=== PATIENT | female | born 1970 | race Caucasian/White ===

== ENCOUNTER 2018-08-12 06:07 | Inpatient (IN) ==
[2018-08-12] MEDS ORDERED: Chlorhexidine Gluconate 2% 1 Pack (2 Cloths) TOPICAL ONE (06:53)
[2018-08-12] MEDS ORDERED: Sodium Chlor 0.9% Inj 500 ML IV.SIG SCH (07:00)
[2018-08-12] MEDS ORDERED: ceFAZolin 2 GM Premix Inj 2 GM/50 ML PIGGYBACK IV.SIG SCH (07:00)
[2018-08-12] MEDS ORDERED: Microfibrillar Collagen Hemostat 1 GM Packet TOPICAL ONE (07:14)
[2018-08-12] MEDS ORDERED: oxyCODONE/Acetaminophen 10/325 Tablet PO PRN (09:47)
[2018-08-12] MEDS ORDERED: LORazepam 0.5 MG Tablet PO PRN (09:47)
[2018-08-12] MEDS ORDERED: Zolpidem Tartrate 5 MG Tablet PO PRN (09:47)
[2018-08-12] MEDS ORDERED: Naloxone Inj 0.4 MG/ML Vial IV.PUSH PRN ×2 (09:47→09:53)
[2018-08-12] MEDS ORDERED: Ketorolac Inj 30 MG/ML (IVP) Vial IV.PUSH PRN (09:47)
[2018-08-12] MEDS ORDERED: Promethazine 25 MG Supp RECTAL PRN (09:47)
[2018-08-12] MEDS ORDERED: Morphine Inj 30 MG/30 ML PCA.VIAL PCA PRN (09:53)
--- NOTE | 2018-08-12 09:56 | P.BOP ---
- Preoperative Diagnosis (1) Menorrhagia with irregular cycle (2) Enlarged uterus (3) Uterine fibroid - Postoperative Diagnosis (1) S/P total abdominal hysterectomy (2) Status post bilateral salpingectomy Date of procedure: 08/12/18 (see dictated op note for full details) Procedure: exam under anesthesia, total abdominal hysterectomy, bilateral salpingectomy Anesthesia: GETA Surgeon: Eufemia Waller MD Maintenance Truck Driver: Hannah George Estimated blood loss (mL): 250 IV fluids (mL): 1,400 Urine output (mL): 100 Pathology: other (uterus, cervix, left fallopian tube, right fallopian tube) Condition: stable Disposition: PACU
[2018-08-12] MEDS ORDERED: fentaNYL Citrate Inj 100 MCG/2 ML Ampul ONE (10:02)
[2018-08-12] MEDS ORDERED: *Meperidine Inj 25 MG/ML Vial PERIprocedural Use ONLY ONE (10:05)
[2018-08-12] MEDS ORDERED: Morphine Inj 30 MG/30 ML PCA.VIAL PCA ONE (10:13)
[2018-08-12] MEDS ORDERED: Ketorolac Inj 30 MG/ML (IVP) Vial ONE (10:13)
[2018-08-12] MEDS ORDERED: *Ondansetron Inj 4 MG/2 ML Vial PERIprocedural Use ONLY ONE (10:17)
--- NOTE | 2018-08-12 10:30 | MP ---
cc: Eufemia Waller MD DATE OF OPERATION: PREOPERATIVE DIAGNOSES: 1. Premenopausal menorrhagia with irregular cycle. 2. Enlarged uterus. 3. Multiple uterine fibroids. 4. Failed medical management. POSTOPERATIVE DIAGNOSES: 1. Premenopausal menorrhagia with irregular cycle. 2. Enlarged uterus. 3. Multiple uterine fibroids. 4. Failed medical management. 5. Postoperative day number zero. INDICATIONS: Liv Kevin is a 48-year-old 3, para 2-0-1-2, who has a long history of progressively longer heavier more painful menstrual cycles, as well as chronic right lower quadrant pain. On office examination, she was found to have a markedly enlarged uterus palpating approximately at the level of the umbilicus, very broad in nature; and on ultrasound imaging, multiple fibroids were found, the largest fibroid was found to be over 8 cm. She was counseled on management options. Initially, she desired expectant management. Later, she desired medical management with Depo-Provera; and due to failure of these methods, the patient eventually desired definitive management with surgery. So, she was counseled and scheduled. PROCEDURE PERFORMED: 1. Exam under anesthesia. 2. Exploratory laparotomy. 3. Total abdominal hysterectomy. 4. Bilateral salpingectomy. SURGEON: Eufemia Waller MD. PUBLICATIONS INSPECTOR: Hannah George MD. TYPE OF ANESTHESIA: General. ESTIMATED BLOOD LOSS: 250 mL. IV FLUID REPLACEMENT: 1400 mL. URINE OUTPUT: 100 mL clear urine drained in the Villarreal bag at the end of the procedure. PROPHYLAXIS: Ancef 2 grams IV was given preoperatively. SCDs were on and functioning throughout the entire case. COMPLICATIONS: None. COUNTS: Sponge, lap, instrument, and needle counts were correct x 2 at the end of the procedure. SPECIMEN: Uterus, cervix, left fallopian tube, right fallopian tube INTRAOPERATIVE FINDINGS: A markedly enlarged multi-fibroid uterus, approximately 18-week size with at least 7 visualized and palpated fibroids, the largest of which a pedunculated anterior leaning to the patient's right side, approximately 8-10 cm. Normal appearing bilateral adnexa. There was a paratubal cyst on the right fallopian tube that was removed with the specimen. PROCEDURE IN DETAIL: After reviewing the informed consent, the patient was taken to the operating suite, where a timeout was performed to identify the patient, planned procedure, and any known allergies to drugs or drug products. The patient was placed in dorsal supine position and general anesthesia was administered without difficulty and found to be adequate. Exam under anesthesia was then performed with results as above. Abdomen and perineum were prepped and draped in normal sterile fashion and Villarreal catheter was placed using sterile technique. A Pfannenstiel-type skin incision was then made with the scalpel and carried down to the underlying layer of fascia with the Bovie. The fascia was incised in the midline. Incision was extended laterally with sharp dissection using Rich scissors. Superior aspect of the fascial incision was elevated with Vahe clamps and rectus muscles were dissected off sharply with Rich scissors. Kochers were then moved to the inferior aspect of the fascial incision and again rectus muscles dissected off sharply with Rich scissors. Rectus muscles were then in the midline. Peritoneum was identified and entered bluntly with surgeon's index finger and incision was extended with good visualization of intra-abdominal contents. Immediately upon entry into the peritoneal cavity, the enlarged uterine mass was noted with anterior fibroid most prominent. The uterus was mobile and was able to be exteriorized, allowing good visualization of tissue planes. First, the right fallopian tube was elevated with [place] clamp, isolated, and a curved Vandana clamp was used to clamp between the ovary and fallopian tube. The specimen was then excised and #0 Vicryl double suture ligation was used on that pedicle with excellent hemostasis. The exact procedure was then performed on the left with successful removal of bilateral fallopian tubes. Attention was then turned to the right round ligament, which was doubly suture ligated with #0 Vicryl. It was then bifurcated and the overlying mesosalpinx was opened to allow development of the bladder flap down to the lower uterine segment. This exact procedure was then repeated on the left with excellent delineation of tissue planes and a bladder flap being made. A clear space was then found beneath the left utero-ovarian ligament. This was incised sharply and 2 curved [place] clamps were then used to doubly clamp this pedicle, allowing the uterus to be from the ovary and the ovary to remain on its vascular supply. Using #0 Vicryl, both these pedicles were doubly suture ligated with excellent hemostasis noted. This exact procedure was then performed on the right with again the right ovary remaining on its vascular supply, from the uterus. A series of hysterectomy clamps were then utilized to secure the uterine blood supply down to and beneath the level of the uterine cervix. All pedicles were suture ligated with #0 Vicryl. Two curved clamps were then placed beneath the level of the uterine cervix. These clamps were touching. The cervix was then amputated from the vaginal cuff and the specimen of uterus plus cervix was passed off the field for pathologic evaluation. These remaining pedicles were suture ligated with #0 Vicryl with excellent hemostasis noted. The pelvis was then irrigated and the vaginal cuff was run with #1 Vicryl in a running locking fashion. The uterosacral ligaments were incorporated into the suture line to allow for excellent elevation of the vaginal cuff. Additional irrigation with suction was performed and excellent hemostasis was noted at all points. All instruments were removed from the pelvis. The count was found to be correct. The peritoneum was then closed in a running layer with 2-0 chromic. The fascia was closed in a running layer with #1 Vicryl. The subcutaneous tissue was irrigated copiously with warm sterile saline and hemostasis ensured with the Bovie. A series of interrupted sutures using 2-0 chromic was used to close the subcutaneous tissue. The skin was then closed in a subcuticular fashion with 3-0 Monocryl. Steri-Strips were placed, as was a standard dressing. The procedure concluded at this point. The patient tolerated the procedure well. She was awoken from anesthesia without complication and brought to the post-anesthesia care area. DISPOSITION: The patient will be admitted overnight. ESTIMATED LENGTH OF STAY: 1-2 postoperative days. MD Mikie Liang , 10:03 AM , 10:13 AM JOSÉ LUIS
[2018-08-12] MEDS: Ketorolac Inj 30 MG/ML (IVP) Vial IV.PUSH SCH ×3 (10:57→22:35)
[2018-08-12] MEDS ORDERED: Morphine Inj 4 MG/ML Vial IV.SIG ONE (11:00)
[2018-08-12] MEDS: Senna/Docusate Sodium 8.6/50 MG Tablet PO SCH ×2 (21:29→22:35)
[2018-08-13 03:51] VITALS: O2SAT 97
[2018-08-13] MEDS: Ketorolac Inj 30 MG/ML (IVP) Vial IV.PUSH SCH (04:19)
[2018-08-13 05:31] LABS: Baso % (Auto) 0.3 % (0.0-2.0); Eos % (Auto) 0.2 % (0.0-4.0); Hematocrit 32.2 % (35.0-46.0); Hemoglobin 10.8 gm/dL (11.6-15.3); Lymph # (Auto) 2.5 th/mm3 (1.0-4.8); Lymph % (Auto) 26.2 % (9.0-44.0); Mean Corpuscular HGB Conc 33.7 % (32.0-36.0); Mean Platelet Volume 8.2 fL (7.0-11.0); Mono # (Auto) 0.7 th/mm3 (0.0-0.9); Mono % (Auto) 7.6 % (0.0-8.0); Neut # (Auto) 6.2 th/mm3 (1.8-7.7); Neut % (Auto) 65.7 % (16.0-70.0); Platelet Count 232 th/mm3 (150-450); Red Blood Count 3.61 mil/mm3 (4.00-5.30); Red Cell Distribution Width 12.9 % (11.6-17.2); White Blood Count 9.5 th/mm3 (4.0-11.0)
--- NOTE | 2018-08-13 08:48 | P.PNOB ---
Assessment and Plan - Postoperative Procedures Operation Date: 08/12/18 08:00 Actual Procedures Side Surgeon p OPEN LAPAROTOMY, TOTAL ABDOMINAL HYSTERECTOMY, BILATERAL SALPINGECTOMY, EXAM UNDER ANESTHESIA Eufemia Waller MD Postoperative day: 1 Postoperative status: doing well Postoperative plan: routine post-op care, see orders, ambulate, advance diet, voiding trials, discharge (if criteria met) - Time Spent With Patient Total time spent is greater than 50% in coordination of care (as documented) at patient's floor/unit and/or counseling patient: Greater than 35 minutes Subjective Interval history: doing well overnight, not using WARP KNITTER, sitting up in bed eating breakfast this morning, catheter still in, order to remove overnight but nurses did not follow or notify MD of why not removed; discussed with day shift nurse and will be removed now; +flatus Physical Exam Vital signs: Temp Pulse Resp BP Pulse Ox 98.4 F 69 18 130/85 97 08/13/18 03:50 08/13/18 03:50 08/13/18 03:50 08/13/18 03:50 08/13/18 03:50 - Constitutional no acute distress - Routine Chest/Breast/Axilla Exam Chest wall: Absent: tenderness - Routine Respiratory Exam Present: CTA bilaterally. Absent: accessory muscle use - Routine Abdominal Exam Present: soft, normoactive bowel sounds Comments: incision c/d/i with steri-strips in place - Detailed Neurological Exam: Coma Scale Eye Opening: Spontaneous Verbal Response: Oriented Motor Response: Obey commands [place] Coma Scale Total: 15 - Urinary Catheter Management Indwelling Urethral Catheter Cath placed during this visit: yes Urethral indwelling: Yes Reason for Continuing: Decision to DC catheter Insertion date: 08/12/18 Insertion time: 08:12 Results - Labs CBC & Chem 7: 08/13/18 05:10 08/13/18 05:10 Labs: Laboratory Results - last 24 hr 08/13/18 08/13/18 05:10 05:10 WBC 9.5 RBC 3.61 L Hgb 10.8 L Hct 32.2 L MCV 89.0 MCH 30.0 MCHC 33.7 RDW 12.9 Plt Count 232 MPV 8.2 Neut % (Auto) 65.7 Lymph % (Auto) 26.2 [place] % (Auto) 7.6 Eos % (Auto) 0.2 Baso % (Auto) 0.3 Neut # (Auto) 6.2 Lymph # (Auto) 2.5 [place] # (Auto) 0.7 Eos # (Auto) 0.0 Baso # (Auto) 0.0 WBC Differential . Differential Comment Auto diff final Creatinine 0.72 Estimated GFR 86 L
--- NOTE | 2018-08-13 08:55 | P.DS ---
Date of admission: 08/12/18 06:07 Primary care physician: Hernesto Galvez MD Attending physician on discharge: Eufemia Waller Anticipated date of discharge: 08/13/18 Brief History from admission: 48 yo admitted after planned total abdominal hysterectomy, bilateral salpingectomy for history of enlarged fibroid uterus, menorrhagia, failed medical therapy. Patient update on day of discharge: Did well overnight POD#0, on POD#1 advance diet, ambulate. Once able to void and pain well controlled on oral meds d/c to home. DS: Diagnosis - Discharge Diagnosis (1) S/P total abdominal hysterectomy Status: Acute (2) Status post bilateral salpingectomy Status: Acute (3) Menorrhagia with irregular cycle Status: Chronic (4) Enlarged uterus Status: Chronic (5) Uterine fibroid Status: Chronic DS: Medications - Discharge Medications Prescriptions: ibuprofen 800 mg PO Q8H PRN #30 tab PRN Reason: Cramps oxycodone-acetaminophen 1 tab PO Q4H PRN #18 tab PRN Reason: Acute Pain sennosides-docusate sodium [Senna Plus] 1 tab PO BID PRN #20 tab PRN Reason: Constipation DS: Summary Hospital Course: Had uncomplicated operative course, did well overnight POD#0. On POD#1 transition from IV to oral pain medications. Order for yi to be removed, ambulate, regular diet. Once pt achieved all discharge goals, d/c to home with office f/u 1 week. Uterus, cervix, bilateral fallopian tubes removed. - Time Spent with Patient Total time spent providing and/or coordinating discharge services: Greater than 30 minutes - Quality: AMI Clinical Trial Participant: No - Quality: VTE Deep Vein Thrombosis/Pulmonary Embolism Present on Admission: No Exam Vital signs: Vital Signs 08/12/18 09:56 08/12/18 10:00 08/12/18 10:15 Temperature 98.5 F Pulse Rate 63 57 L 60 Respiratory Rate 20 19 20 Blood Pressure 153/89 H 159/92 H 142/85 H Pulse Oximetry 97 99 99 08/12/18 10:30 08/12/18 10:45 08/12/18 10:50 Temperature 97.9 F Pulse Rate 53 L 56 L Respiratory Rate 21 19 Blood Pressure 146/89 H 147/89 H Pulse Oximetry 98 98 96 08/12/18 11:00 08/12/18 11:40 08/12/18 16:00 Temperature 97.9 F 97.9 F Pulse Rate 55 L 55 L 53 L Respiratory Rate 20 14 14 Blood Pressure 149/89 H 141/85 H 124/82 Pulse Oximetry 97 08/12/18 20:00 08/12/18 23:57 08/13/18 03:50 Temperature 98.2 F 98.4 F 98.4 F Pulse Rate 63 55 L 69 Respiratory Rate 18 16 18 Blood Pressure 123/77 131/79 130/85 Pulse Oximetry 97 95 97 Intake & Output 08/12/18 08/13/18 08/13/18 18:59 06:59 18:59 Intake Total 450 / 450 1400 / 1400 Output Total 350 / 350 875 / 875 Balance 100 / 100 525 / 525 Intake: IV 50 / 50 1000 / 1000 LR 1000 mL Inj 1,000 ML @ 100 1000 / 1000 mls/hr IV.CONT .Q10H [facility] Rx#: [id number] Ancef 2 GM Premix Inj 2 gm In 50 / 50 50 ml @ 150 mls/hr IV.SIG REFINERY OPERATOR [employer] [facility] Rx#:[id number] Oral 400 / 400 Anesthesia Amount 400 / 400 Output: Estimated Blood Loss 250 / 250 Urine Amount (Catheter) 100 / 100 875 / 875 Indwelling Urethral Catheter 100 / 100 875 / 875 - Constitutional no acute distress - Routine HEENT Exam Head: Present: normocephalic, atraumatic Eye: Present: EOMI, PERRL ENT: Present: mucous membranes moist - Routine Neck Exam Present: supple, full ROM - Routine Chest/Breast/Axilla Exam Chest wall: Absent: tenderness - Routine Respiratory Exam Present: CTA bilaterally. Absent: accessory muscle use - Routine Cardiovascular Exam Present: RRR. Absent: bradycardia - Routine Abdominal Exam Present: soft, normoactive bowel sounds Comments: incision c/d/i with steri strips in place - Routine Extremities Exam Absent: cyanosis, clubbing - Routine Skin Exam Present: intact. Absent: cyanosis - Routine Neurological Exam Present: alert, oriented X3 Results Procedures completed during hospitalization: exam under anesthesia, exploratory laparotomy, total abdominal hysterectomy, bilateral salpingectomy Pending studies at discharge: Pending at discharge 08/12/18 10:58 Surgical [PTH] Routine Labs on day of discharge: Labs from last 24 hours 08/13/18 08/13/18 05:10 05:10 WBC 9.5 RBC 3.61 L Hgb 10.8 L Hct 32.2 L MCV 89.0 MCH 30.0 MCHC 33.7 RDW 12.9 Plt Count 232 MPV 8.2 Neut % (Auto) 65.7 Lymph % (Auto) 26.2 [place] % (Auto) 7.6 Eos % (Auto) 0.2 Baso % (Auto) 0.3 Neut # (Auto) 6.2 Lymph # (Auto) 2.5 [place] # (Auto) 0.7 Eos # (Auto) 0.0 Baso # (Auto) 0.0 WBC Differential . Differential Comment Auto diff final Creatinine 0.72 Estimated GFR 86 L Discharge Plan - Discharge Disposition Patient Disposition: Discharge Home - Discharge Condition Condition: Good - Discharge Order Discharge Orders: Discharge Order (Routine); Ordered 08/13/18 Ordered By: Eufemia Waller - Discharge Details Anticipated Discharge Date: 08/13/18 - Physicians Team Primary Care Provider: Hernesto Galvez Attending Provider: Eufemia Waller - Rxs /Orders / Referrals /Forms Prescriptions: New ibuprofen 800 mg Tablet 800 mg PO Q8H PRN (Reason: Cramps) Qty: 30 RF: 1 oxycodone-acetaminophen 5-325 mg Tablet 1 tab PO Q4H PRN (Reason: Acute Pain) Qty: 18 RF: 0 sennosides-docusate sodium [Senna Plus] 8.6-50 mg Tablet 1 tab PO BID PRN (Reason: Constipation) Qty: 20 RF: 0 Discontinued ferrous sulfate [Iron (ferrous sulfate)] 325 mg (65 mg iron) Tablet 325 mg PO DAILY medroxyprogesterone [Depo-Provera] 150 mg/mL Syringe 150 mg IM [id number] Referrals: Eufemia Waller MD [Physician] - See Instructions - Discharge Instructions Patient Printed Instructions: Hysterectomy (DC) - Post Discharge Care Plan Care Plan Goals: We want you to have a wonderful recovery! Please Report the Following Symptoms to Your Doctor: -Temperature above 100.5 degrees -Redness of incision or excessive or foul smelling drainage -Unusual pain or calf pain -Increased vaginal bleeding -Painful or difficulty urinating Goals to Promote Your Health * To prevent worsening of your condition and complications * To maintain your health at the optimal level Directions to Meet Your Goals Take your medications as prescribed Follow your dietary instruction Follow activity as directed Ensure plenty of rest for recovery Drink fluids for hydration Keep your appointments as scheduled Take your immunizations and boosters as scheduled If your symptoms worsen call your BUSINESS ANALYST Physician, or go to an Urgent Care Center or Emergency Room Smoking is Dangerous to your health. Avoid second hand smoke Call the 24-hour crisis hotline for domestic abuse at
[2018-08-13 09:09] VITALS: BP 137/80; PULSE 75; RESP 16; TEMP 98.5
[2018-08-13] MEDS: Senna/Docusate Sodium 8.6/50 MG Tablet PO SCH (09:24)
== END 2018-08-13 12:49 | disposition home or self-care (01) | DRG 743 ==
LOC: HSDI 06:07 → H1EA 11:08
PROVIDERS: ADMIT Obstetrics & Gynecology; ATTEND Obstetrics & Gynecology
CPT/HCPCS: 82565; 84702; 85025; 86850; 86900; 86901; 88307; 94150; J0131; J0690; J1885; J2175; J2250; J2270; J2405; J3010; J7120